=== PATIENT | female | born 1955 | race African-American/Black ===

== ENCOUNTER 2017-03-05 09:45 | Outpatient (CLI) | payer MEDICARE, MEDICAID ==
--- NOTE | 2017-03-05 11:17 | MMO ---
BILATERAL SCREENING MAMMOGRAM: DATE: 03/05/17 HISTORY: 61-year-old female for screening mammography. COMPARISON: 01/08/16. FINDINGS: Bilateral MLO and CC views of the breasts show scattered fibroglandular breast tissue. There are mul tiple well circumscribed masses in both breasts, which appear benign and are stable. There is no isabela dence of suspicious mass, suspicious cluster of microcalcifications, or area of architectural distor tion. Interpretation of this mammogram was performed with the assistance of computer-aided detection. IMPRESSION: BIRADS 2: Benign Finding(s) Annual screening mammography is recommended. POS: FRANTZ
== END 2017-03-05 09:46 | disposition home or self-care (01) ==
LOC: SCSMAMMO 09:45
PROVIDERS: ATTEND Family Medicine
DX: Z12.31 Encounter for screening mammogram for malignant neoplasm of breast (principal)
CPT/HCPCS: 77067; G0202

== ENCOUNTER 2017-12-24 09:41 | Outpatient (CLI) | payer MEDICARE, MEDICAID ==
--- NOTE | 2017-12-24 10:16 | RAD ---
FOUR VIEWS OF THE LEFT KNEE: COMPARISON: None. HISTORY: Chronic left knee pain which has been worse over the last month. FINDINGS: Four views of the left knee show no evidence of acute fracture or dislocation. Moderate tricompartme ntal osteophytes are seen consistent with osteoarthritis. IMPRESSION: Moderate left knee osteoarthritis without acute osseous abnormality. POS: FRANTZ
== END 2017-12-24 09:42 | disposition home or self-care (01) ==
LOC: SCSRAD 09:41
PROVIDERS: ATTEND Family Medicine
DX: M25.562 Pain in left knee (principal); M17.12 Unilateral primary osteoarthritis, left knee

== ENCOUNTER 2018-09-09 10:01 | Outpatient (CLI) | payer MEDICARE, MEDICAID ==
--- NOTE | 2018-09-09 12:51 | MMO ---
Bilateral MAMMO Bilat Screen [facility]. CLINICAL HISTORY: Patient is 62 years old and is seen for screening. The patient has no family history of breast cancer. The patient has no personal history of cancer. The patient has a history of right Excisional Biopsy at age 39 - benign. VIEWS: The views performed were: bilateral craniocaudal and bilateral mediolateral oblique. FILMS COMPARED: The present examination has been compared to prior imaging studies performed at [facility] on 11/03/2013, 01/02/2015 and 01/08/2016, and at [facility] on 01/26/2008 and 07/03/2010. This study has been interpreted with the assistance of computer-aided detection. MAMMOGRAM FINDINGS: There are scattered fibroglandular densities. Nodularity is stable. There are no suspicious masses, calcifications or areas of architectural distortion. There are no suspicious masses, suspicious calcifications, or new areas of architectural distortion. IMPRESSION: THERE IS NO MAMMOGRAPHIC EVIDENCE OF MALIGNANCY. A ROUTINE FOLLOW-UP MAMMOGRAM IN 1 YEAR IS RECOMMENDED. ACR BI-RADS Category 2 - Benign finding MAMMOGRAPHY NOTE: 1. A negative mammogram report should not delay a biopsy if a dominant of clinically suspicious mass is present. 2. Approximately 10% to 15% of breast cancers are not detected by mammography. 3. Adenosis and dense breasts may obscure an underlying neoplasm.
== END 2018-09-09 10:02 | disposition home or self-care (01) ==
LOC: SCSMAMMO 10:01
PROVIDERS: ATTEND Family Medicine
DX: Z12.31 Encounter for screening mammogram for malignant neoplasm of breast (principal)
CPT/HCPCS: 77067

== ENCOUNTER 2020-03-13 11:34 | Outpatient (CLI) | payer MEDICARE, MEDICAID ==
--- NOTE | 2020-03-13 12:59 | RAD ---
RADIOGRAPH CERVICAL SPINE 5 VIEWS: DATE: 03/13/2020 HISTORY: 64-year-old female with cervicalgia. TECHNIQUE: Lateral neutral, flexion, and extension. Bilateral oblique. AP. Swimmer's. FINDINGS: There is moderate disc space narrowing with endplate irregularity, and endplate moderate osteophytosi s, at all levels from C3 to 3 through C6-7. Bilateral uncinate process osteophytes encroach upon bilateral neural foramina. No high-grade right neural foraminal stenosis identified. Severe left C4-5, and moderate left C5-6 neural foraminal stenosis. Retrolisthesis of C4 on C5. No major instability. IMPRESSION: 1. Diffuse high-grade cervical lymphadenopathy, with multilevel severe degenerative disc disease thro ughout most levels. 2) high-grade left neural foraminal stenosis.
--- NOTE | 2020-03-13 13:09 | RAD ---
RADIOGRAPH LUMBAR SPINE 7 VIEWS: DATE: 03/13/2020 HISTORY: 64-year-old female with low back pain. TECHNIQUE: 3 lateral views in flexion, extension, and neutral. Lateral coned-down view. Bilateral oblique view. AP view. FINDINGS: 5 lumbar-type vertebrae. Bilateral dysplastic L5 transverse processes appear to be fused with bilateral sacral alae. High-grade bilateral facet DJD at L4-5 and L5-S1. Vertebral body heights are maintained. Disc space narrowing is mild to moderate at L3-4, and mild at levels superior to it. No high-grade disc space narrowing at any level. Minimal anterolisthesis L5 on S1. No instability between flexion and extension. However, there is almost no change in position between flexion and extension. Exaggerated lordosis of lower lumbar spine and lumbosacral junction. No pars interarticularis defect. No high-grade spondylolisthesis. IMPRESSION: 1) very limited range of motion. 2) high-grade lower level facet osteoarthrosis. 3) lumbosacral transitional vertebra type IIIB
== END 2020-03-13 11:35 | disposition home or self-care (01) ==
LOC: SCSRAD 11:34
PROVIDERS: ATTEND Family Medicine
DX: M51.36 Other intervertebral disc degeneration, lumbar region (principal); M54.2 Cervicalgia; M47.816 Spondylosis without myelopathy or radiculopathy, lumbar region; M50.30 Other cervical disc degeneration, unspecified cervical region; M48.02 Spinal stenosis, cervical region; R59.0 Localized enlarged lymph nodes
CPT/HCPCS: 72052; 72100

== ENCOUNTER 2020-03-28 10:07 | Outpatient (CLI) | payer MEDICARE, MEDICAID ==
--- NOTE | 2020-03-28 10:47 | MMO ---
Bilateral MAMMO Bilat Screen [facility]. CLINICAL HISTORY: Patient is 64 years old and is seen for screening. The patient has no family history of breast cancer. The patient has no personal history of cancer. The patient has a history of right Excisional Biopsy at age 39 - benign. VIEWS: The views performed were: bilateral craniocaudal with tomosynthesis and bilateral mediolateral oblique with tomosynthesis. FILMS COMPARED: The present examination has been compared to prior imaging studies performed at [facility] on 11/03/2013, 01/02/2015, 01/08/2016 and 09/09/2018. This study has been interpreted with the assistance of computer-aided detection. MAMMOGRAM FINDINGS: There are scattered fibroglandular densities. There are stable benign appearing densities seen in both breasts. There are no suspicious masses, suspicious calcifications, or new areas of architectural distortion. IMPRESSION: THERE IS NO MAMMOGRAPHIC EVIDENCE OF MALIGNANCY. A ROUTINE FOLLOW-UP MAMMOGRAM IN 1 YEAR IS RECOMMENDED. THE RESULTS OF THIS EXAM WERE SENT TO THE PATIENT. ACR BI-RADS Category 2 - Benign finding MAMMOGRAPHY NOTE: 1. A negative mammogram report should not delay a biopsy if a dominant of clinically suspicious mass is present. 2. Approximately 10% to 15% of breast cancers are not detected by mammography. 3. Adenosis and dense breasts may obscure an underlying neoplasm. Reported by: JANICE HERRERA MD Electonically Signed: [id number]
== END 2020-03-28 10:08 | disposition home or self-care (01) ==
LOC: BICMAMMO 10:07
PROVIDERS: ATTEND Family Medicine
DX: Z12.31 Encounter for screening mammogram for malignant neoplasm of breast (principal); Z91.89 Other specified personal risk factors, not elsewhere classified
CPT/HCPCS: 77063; 77067

== ENCOUNTER 2022-09-26 10:59 | Observation (INO) | payer OTHER ==
[~2022-09-26 10:59] MED LIST: MD-Gastroview 120 ML BOT ONE
[2022-09-26 14:55] VITALS: BMI 42.7
[2022-09-26] MEDS ORDERED: Albuterol 200 PUFF (6.7GM INHALER) INH PRN (15:58)
[2022-09-26] MEDS ORDERED: Ondansetron PF 4 MG/2 ML Vial IVP PRN (16:03)
[2022-09-26] MEDS ORDERED: Potassium Chloride 20 MEQ TAB PO SCH (16:15)
[2022-09-26] MEDS ORDERED: Dextrose 5% in Water 1,000 ML IV PRN (16:25)
[2022-09-26] MEDS ORDERED: Dextrose 50% Abboject 50 ML SYRINGE SLOW IVP PRN (16:25)
[2022-09-26] MEDS ORDERED: HumaLOG 300 UNITS/3 ML VIAL SC PRN ×2 (16:25)
[2022-09-26 16:42] LABS: Actual Bicarbonate (HCO3v) 24.9 mEq/L (22-28); Base Excess 1.1 mEq/L (-2.0 to +3.0); Calcium, Ionized (venous) 1.02 mmol/L (1.16-1.32); Chloride (VBG) 105 mmol/L (98-106); Hematocrit-VBG 45 % (36.0-47.0); Hemoglobin (Hb) 15.3 g/dL (11.7-16.1); Potassium (VBG) 3.32 mmol/L (3.70-5.30); Sodium 141.1 mmol/L (133-146); pH (venous) 7.445 (7.32-7.43)
[2022-09-26] MEDS ORDERED: Methocarbamol 500 MG TAB PO PRN (16:46)
[2022-09-26] MEDS ORDERED: Piperacillin/Tazobactam 3.375 GM in Sodium Chloride 0.9% 100 ML IVPB SCH (17:00)
[2022-09-26 17:07] LABS: Anion Gap 12 mmol/L (10-20); BUN (Urea Nitrogen) 5 mg/dL (9.8-20.1); Calc. Creatinine Clearance 123 mL/min (70-130); Calcium 8.7 mg/dL (7.8-10.44); Carbon Dioxide 23 mmol/L (23-31); Chloride 108 mmol/L (98-107); Estimated GFR 82; Glucose 105 mg/dL (80-115); Potassium 3.3 mmol/L (3.5-5.1); Sodium 140 mmol/L (136-145)
[2022-09-26] MEDS ORDERED: Potassium Chloride 40 MEQ in Premix Bag 1 BAG IVPB SCH (17:30)
[2022-09-26] MEDS: Mometasone/Formoterol 200/5 60 PUFF INH SCH (18:43)
[2022-09-26] MEDS: Lactated Ringer's 1,000 ML IV SCH (19:39)
[2022-09-26] MEDS: Potassium Chloride 20 MEQ in Premix Bag 1 BAG IVPB SCH ×2 (19:40→22:02)
[2022-09-26] MEDS: Acetaminophen 325 MG TAB PO PRN (19:44)
[2022-09-26] MEDS ORDERED: Montelukast Sodium 10 mg Tablet PO SCH (21:00)
[2022-09-26] MEDS ORDERED: Simvastatin 10 MG TAB PO SCH (21:00)
[2022-09-26] MEDS ORDERED: AZELASTINE HCL EA EYE SCH (21:00)
[2022-09-26 21:41] LABS: SARS-CoV-2 NAA Rapid Test Not Detected (NotDetected)
[2022-09-26] MEDS: Piperacillin/Tazobactam 3.375 GM in Sodium Chloride 0.9% 100 ML IVPB SCH (22:02)
[2022-09-27] MEDS: Piperacillin/Tazobactam 3.375 GM in Sodium Chloride 0.9% 100 ML IVPB SCH ×2 (05:29→13:17)
[2022-09-27] MEDS: Acetaminophen 325 MG TAB PO PRN (05:31)
[2022-09-27] MEDS: Lactated Ringer's 1,000 ML IV SCH ×2 (05:31→19:40)
[2022-09-27] MEDS: Mometasone/Formoterol 200/5 60 PUFF INH SCH ×2 (06:27→19:29)
[2022-09-27 06:32] LABS: #Lymphocytes 1.9 thou/uL (1.20-3.40); #Monocytes 0.5 thou/uL (0.11-0.59); #Neutrophils 3.4 thou/uL (1.40-6.50); %Basophils 0.5 % (0.0-1.0); %Eosinophils 0.3 % (0.0-10.0); %Lymphocytes 32.5 % (21.0-51.0); %Monocytes 8.8 % (0.0-10.0); Hemoglobin 14.1 g/dL (12.0-16.0); Mean Corpuscular HGB CONC 32.8 g/dL (32.0-36.0); Mean Corpuscular Hemoglobin 28.1 pg (27.0-31.0); Mean Corpuscular Volume 85.5 fl (78.0-98.0); Mean Platelet Volume 7.9 fL (7.4-10.4); Platelet Count 268 10x3/uL (130-400); RBC Distribution Width 14.4 % (11.5-14.5); Red Blood Cell (RBC) Count 5.04 mill/uL (4.20-5.40); White Blood Cell (WBC) Count 5.9 10x3/uL (4.8-10.8)
[2022-09-27 06:38] LABS: Hemoglobin A1c 5.9 % (4.0-6.0)
[2022-09-27 06:56] LABS: ALT (SGPT) 23 U/L (8-55); AST (SGOT) 23 U/L (5-34); Albumin 3.6 g/dL (3.4-4.8); Alkaline Phosphatase 71 U/L (40-110); Anion Gap 16 mmol/L (10-20); BUN (Urea Nitrogen) 7 mg/dL (9.8-20.1); Bilirubin, Direct 0.2 mg/dL (0.1-0.3); Bilirubin, Total 0.3 mg/dL (0.2-1.2); Calc. Creatinine Clearance 109 mL/min (70-130); Calcium 8.8 mg/dL (7.8-10.44); Carbon Dioxide 18 mmol/L (23-31); Cardiac Risk 2.9 (Less than 4.5); Chloride 114 mmol/L (98-107); Cholesterol 103 mg/dl (< 200 Desired); Estimated GFR 71; Glucose 93 mg/dL (80-115); HDL Cholesterol 35 mg/dL (>60 Neg Risk); LDL Cholesterol, Calculated 50 mg/dL; Magnesium 2.2 mg/dL (1.6-2.6); Potassium 3.6 mmol/L (3.5-5.1); Protein, Total 6.2 g/dL (5.8-8.1); Sodium 144 mmol/L (136-145); Triglycerides 90 mg/dL (Less than 150)
[2022-09-27] MEDS ORDERED: Linaclotide [Linzess] 290 MCG Capsule PO SCH (07:30)
[2022-09-27] MEDS ORDERED: Aspirin 81 mg Enteric Coated Tablet PO SCH (09:00)
[2022-09-27] MEDS ORDERED: Hydrochlorothiazide 25 MG TAB PO SCH (09:00)
[2022-09-27] MEDS ORDERED: Amlodipine 5 MG TAB PO SCH (09:00)
[2022-09-27] MEDS ORDERED: Valsartan 80 MG TAB PO SCH (09:00)
[2022-09-27] MEDS ORDERED: FLUoxetine HCl 10 MG CAP PO SCH (09:00)
[2022-09-27 16:36] VITALS: BP 135/76; TEMP 98.5
== END 2022-09-27 20:00 | disposition home or self-care (01) ==
LOC: SJJU 14:15
PROVIDERS: ADMIT Family Medicine; ATTEND Family Medicine
DX: K56.600 Partial intestinal obstruction, unspecified as to cause (principal); I10 Essential (primary) hypertension; E11.43 Type 2 diabetes mellitus with diabetic autonomic (poly)neuropathy; K31.84 Gastroparesis; J45.909 Unspecified asthma, uncomplicated; E87.6 Hypokalemia; G89.29 Other chronic pain; M54.9 Dorsalgia, unspecified; M25.569 Pain in unspecified knee; K76.0 Fatty (change of) liver, not elsewhere classified; K57.30 Diverticulosis of large intestine without perforation or abscess without bleeding; Z79.82 Long term (current) use of aspirin; Z79.84 Long term (current) use of oral hypoglycemic drugs; Z79.899 Other long term (current) drug therapy; Z88.5 Allergy status to narcotic agent; Z88.8 Allergy status to other drugs, medicaments and biological substances; Z91.013 Allergy to seafood; Z91.041 Radiographic dye allergy status; Z20.822 Contact with and (suspected) exposure to COVID-19
CPT/HCPCS: 0240U; 71045; 74250; 80048 ×2; 80061; 80076; 82805; 82962 ×2; 83036; 83605; 83735; 84443; 85025; 87040; 87633; 87798 ×2; 94640; 96374; 96375; 96376 ×2; G0378 ×2; G0379; 36415; 36416; J2543; J3480; J3490; J7120; Q9963

== ENCOUNTER 2024-05-18 08:31 | Outpatient (CLI) | payer OTHER | END 2024-05-18 08:32 | disposition home or self-care (01) | LOC: SCSMRI 08:31 | PROVIDERS: ATTEND Student in an Organized Health Care Education/Training Program | DX: G93.9 Disorder of brain, unspecified (principal); M79.89 Other specified soft tissue disorders | CPT/HCPCS: 70553; 76376 ==

== ENCOUNTER 2024-05-26 07:59 | Outpatient (CLI) | payer OTHER | END 2024-05-26 08:00 | disposition home or self-care (01) | LOC: SCSMRI 07:59 | PROVIDERS: ATTEND Student in an Organized Health Care Education/Training Program | DX: S14.157A Other incomplete lesion at C7 level of cervical spinal cord, initial encounter (principal); M47.812 Spondylosis without myelopathy or radiculopathy, cervical region; M50.321 Other cervical disc degeneration at C4-C5 level; M50.322 Other cervical disc degeneration at C5-C6 level; M50.323 Other cervical disc degeneration at C6-C7 level; M48.02 Spinal stenosis, cervical region; M50.33 Other cervical disc degeneration, cervicothoracic region; M25.78 Osteophyte, vertebrae; M50.221 Other cervical disc displacement at C4-C5 level | CPT/HCPCS: 72141 ==

== ENCOUNTER 2025-05-18 09:26 | Outpatient (CLI) | payer OTHER | END 2025-05-18 09:27 | disposition home or self-care (01) | LOC: SCSBT 09:26 | PROVIDERS: ATTEND Family Medicine | DX: Z78.0 Asymptomatic menopausal state (principal) | CPT/HCPCS: 77080 ==